=== PATIENT | male | born 2000 ===

== ENCOUNTER 2022-03-20 20:50 | Emergency (ER) | payer OTHER ==
[~2022-03-20] VITALS: Ht 165.1 cm; Wt 81.8 kg
[2022-03-20] MEDS ORDERED: ALBU8HFA IH ×2 (21:09→22:59)
[2022-03-20] MEDS ORDERED: PredniSONE 20 MG TABLET PO ONE (21:30)
[2022-03-20] MEDS ORDERED: ALBUTEROL SULFATE 5 MG/ML 20 ML NEB SOLN [BULK] NEB ONE (21:30)
[2022-03-20] MEDS ORDERED: EPINEPHrine 1:1,000 [1 MG/ML] VIAL IM ONE (21:30)
[2022-03-20] MEDS ORDERED: IPRATROPIUM BROMIDE 0.5 MG/2.5 ML NEB SOLUTION NEB ONE (21:30)
[2022-03-20 21:39] VITALS: BP 133/62
[2022-03-20] MEDS ORDERED: 0.9% SODIUM CHLORIDE 5 ML NEB SOLUTION NEB ONE (21:54)
[2022-03-20] MEDS ORDERED: PRED-554 PO (22:59)
== END 2022-03-21 03:04 | disposition home or self-care (01) ==
LOC: EMS 20:50
DX: J45.909 Unspecified asthma, uncomplicated (principal)
CPT/HCPCS: 99283; 94640; 96372; J0171; J7512